=== PATIENT | female | born 1990 | race Caucasian/White ===

== ENCOUNTER 2017-02-02 14:57 | Emergency (ER) | payer BC ==
[~2017-02-02] VITALS: Ht 160 cm; Wt 78.0 kg
[~2017-02-02 14:57] MED LIST: ONDA4TAB14 PO
[2017-02-02 15:04] VITALS: Ht 160 cm; Wt 78.0 kg
[2017-02-02] MEDS ORDERED: SOD CHLORIDE 0.9% 1,000 ML IV STA (15:41)
[2017-02-02] MEDS ORDERED: ACET500C5 PO (15:51)
[2017-02-02] MEDS ORDERED: METO10TA92 PO (15:51)
--- NOTE | 2017-02-02 15:57 | ERD ---
ER Documentation Chief Complaint Date/Time DATE: 02/02/17 TIME: 15:52 Chief Complaint 9 WEEKS WITH LEFT GROIN PAIN HPI Patient is a 26-year-old female, approximately 9 weeks , , presents the ED for pelvic cramping and left groin pain. Patient states her symptoms started 3 days ago. Patient states the pain is sharp and episodic in nature. Patient states her current pain level is a 4 out of 10. Patient denies any vaginal bleeding. Patient denies any fevers, chills, nausea. Patient does report vomiting throughout her . Patient states she vomits 3-4 times per day. Patient has not seen her MOLECULAR PATHOLOGIST yet. Last menstrual period on 12-05-16. ROS All systems reviewed and are negative except as per history of present illness. Medications Home Meds Active Scripts Cephalexin* (Keflex*) 500 Mg Capsule, 500 MG PO TID for 7 Days, CAP Prov:RIAZ SPENCE PA-C 02/02/17 Metoclopramide* (Reglan*) 10 Mg Tablet, 10 MG PO Q6 Y for NAUSEA AND/OR VOMITING , #10 TAB Prov:RIAZ SPENEC PA-C 02/02/17 Acetaminophen* (Tylophen*) 500 Mg Capsule, 1 CAP PO Q6H Y for PAIN AND OR ELEVATED TEMP, #20 CAP Prov:RIAZ SPENCE PA-C 02/02/17 Ondansetron (Ondansetron Odt) 4 Mg Tab.rapdis, 4 MG PO Q6H Y for NAUSEA AND/OR VOMITING, #30 TAB Prov:CASIE MOISE MD 06/09/16 Allergies Allergies: Coded Allergies: No Known Allergy (Unverified , 02/02/17) PMhx/Soc History of Surgery: No Anesthesia Reaction: No Hx Respiratory Disorders: No Hx Psychiatric Problems: No Hx Miscellaneous Medical Probl: No Hx Alcohol Use: No Hx Substance Use: No Hx Tobacco Use: No FmHx Family History: No diabetes Physical Exam Vitals Vital Signs Date Time Temp Pulse Resp B/P Pulse Ox O2 Delivery O2 Flow Rate FiO2 02/02/17 15:04 98.1 77 18 109/60 99 Physical Exam GENERAL: Well-developed, well-nourished female. Appears in no acute distress. HEAD: Normocephalic, atraumatic. EYES: Pupils are equally reactive bilaterally. EOMs grossly intact. No conjunctival erythema. ENT: Moist mucous membranes. No uvula deviation. No kissing tonsils. NECK: Supple. No meningismus. Normal range of motion of the neck. LUNG: Clear to auscultation bilaterally. No rhonchi, wheezing, rales or coarse breath sounds. HEART: Regular rate and rhythm. No murmurs, rubs or gallops. ABDOMEN: Soft and nondistended. Minimally tender to palpation in the left lower quadrant. No bulges palpated. No rebound tenderness, no guarding. (-) McBurney's point tenderness. No CVA tenderness. BACK: No midline tenderness. EXTREMITIES: Equal pulses bilaterally. No peripheral clubbing, cyanosis or edema. No unilateral leg swelling. NEUROLOGIC: Alert and oriented. Moving all four extremities without any difficulty. Normal speech. Steady gait. SKIN: Normal color. Warm and dry. No rashes or lesions. Result Diagram: 02/02/17 1550 02/02/17 1550 Results 24 hrs Laboratory Tests Test 02/02/17 15:50 02/02/17 16:05 White Blood Count 9.610^3/ul Red Blood Count 3.8510^6/ul Hemoglobin 11.5g/dl Hematocrit 34.8% Mean Corpuscular Volume 90.4fl Mean Corpuscular Hemoglobin 29.9pg Mean Corpuscular Hemoglobin Concent 33.0g/dl Red Cell Distribution Width 12.1% Platelet Count 99053^3/UL Mean Platelet Volume 10.1fl Neutrophils % 68.8% Lymphocytes % 22.4% Monocytes % 6.3% Eosinophils % 1.7% Basophils % 0.4% Nucleated Red Blood Cells % 0.0/100WBC Neutrophils # 6.610^3/ul Lymphocytes # 2.210^3/ul Monocytes # 0.610^3/ul Eosinophils # 0.210^3/ul Basophils # 0.010^3/ul Nucleated Red Blood Cells # 0.010^3/ul Sodium Level 141mmol/L Potassium Level 3.9mmol/L Chloride Level 102mmol/L Carbon Dioxide Level 25mmol/L Anion Gap 18 Blood Urea Nitrogen 10mg/dl Creatinine 0.63mg/dl Glucose Level 76mg/dl Calcium Level 9.3mg/dl Total Bilirubin 0.0mg/dl Direct Bilirubin 0.00mg/dl Indirect Bilirubin 0.0mg/dl Aspartate Amino Transf (AST/SGOT) 27IU/L Alanine Aminotransferase (ALT/SGPT) 43IU/L Alkaline Phosphatase 60IU/L Total Protein 7.1g/dl Albumin 3.9g/dl Globulin 3.20g/dl Albumin/Globulin Ratio 1.21 Beta HCG, Quantitative 920445.0mIU/ml Urine Color YELLOW Urine Clarity SLIGHTLY CLOUDY Urine pH 8.0 Urine Specific [place] 1.014 Urine Ketones NEGATIVEmg/dL Urine Nitrite NEGATIVEmg/dL Urine Bilirubin NEGATIVEmg/dL Urine Urobilinogen NEGATIVEmg/dL Urine Leukocyte Esterase 3+Vikram/ul Urine Microscopic RBC 3/HPF Urine Microscopic WBC 4/HPF Urine Squamous Epithelial Cells FEW/HPF Urine Bacteria FEW/HPF Urine Hemoglobin NEGATIVEmg/dL Urine Glucose NEGATIVEmg/dL Urine Total Protein NEGATIVEmg/dl Current Medications Medications (Trade) Dose Ordered Sig/Mike Route PRN Reason Start Time Stop Time Status Last Admin Dose Admin Sodium Chloride (NS) 1,000 ml @ 1,000 mls/hr Q1H STAT IV 02/02/17 15:41 02/02/17 16:40 DC Metoclopramide HCl (Reglan) 10 mg ONCE ONCE IV 02/02/17 16:00 02/02/17 16:01 DC Procedures/MDM ED COURSE: The patient was stable throughout ED course. I kept the patient and/or family informed of laboratory and diagnostic imaging results throughout the ED course. DIAGNOSTIC IMAGING: Read by radiologist. Patient: JULIA WHIPPLE : 1990 Age: 26 Sex: F MR #: [id number] DOS: 02/02/17 1541 Ordering MD: RIAZ SPENCE PA-C Location: [facility] Room/Bed: PROCEDURE: OBSTETRICAL ULTRASOUND WITH ENDOVAGINAL IMAGES CLINICAL INDICATION: pelvic pain TECHNIQUE: Multiple sonographic images of the pelvis were obtained utilizing a transabdominal and endovaginal technique. The images were reviewed on a PACS workstation. COMPARISON: None. LMP: 12/05/2016 FINDINGS: There is a single live intrauterine with heart rate of 174 beats per minute, mean sac diameter of 3.58 cm, yolk sac, and crown-rump length of 2.05 cm which is consistent with a gestational age of 8 weeks, 6 days . The estimated date of delivery by ultrasound is 09/08/2017 . The estimated gestational age by LMP is 8 weeks, 3 days . The estimated date of delivery by LMP is 09/11/2017 . There is a 2.5 cm hypoechoic and hypovascular lesion adjacent to the gestational sac consistent with a subchorionic hemorrhage. The right ovary measures 3.1 x 1.5 x 2.0 cm. The left ovary measures a 5.2 x 3.2 x 3.4 cm. There is normal vascular flow in both ovaries. There is a 3 cm cystic lesion with low level internal echoes in the left ovary which may be a hemorrhagic/corpus luteal cyst. No significant pelvic free fluid is identified. IMPRESSION: Single live intrauterine consistent with a gestational age of 8 weeks , 6 days . The estimated date of delivery is 09/08/2017 . Dating by ultrasound is within 3 days of dating by LMP. 2.5 cm subchorionic hemorrhage. 3 cm complex cystic lesion in the left ovary may be a hemorrhagic/corpus luteal cyst. Attention on follow-up is recommended. RPTAT: EE Physician Valentine Date Time Electronically viewed and signed by Physician Valentine on 02/02/2017 16:14 RA/ CC: RIAZ SPENCE PA-C PROCEDURES: None. MEDICAL DECISION MAKING: This is a 26-year-old female presents to the ED for concerns of left- sided groin pain, pelvic cramping 3 days. Patient also does report vomiting daily. Patient denied any bleeding currently. Patient states her last menstrual period was on 12-05-16 believes that she is approximately 9 weeks . Patient has not seen an MOLECULAR PATHOLOGIST yet. Vital signs were reviewed. Patient was afebrile. Patient was offered IV fluids as well as Reglan however she declined. Quantitative b-HCG was 480934. CBC showed no evidence of systemic infection. Hgb noted to be 11.5, slight anemia noted. CMP showed no evidence of electrolyte abnormalities, severe acidosis, alkalosis, renal failure, or liver disease. UA showed no evidence of acute infection or hematuria. UA showed 3+ leukocyte esterase. Pelvic US showed Single live intrauterine consistent with a gestational age of 8 weeks, 6 days. 2.5 cm subchorionic hemorrhage. 3 cm complex cystic lesion in the left ovary may be a hemorrhagic/ corpus luteal cyst. Attention on follow-up is recommended. Given these findings , the patient's presentation is most consistent with left ovarian cyst, subchoronic hemorrhage and UTI. I have a much lower clinical concern for ectopic , ruptured ectopic , molar , spontaneous , incomplete , complete , missed , placental abruption, placental previa, vasa previa, uterine rupture, anembyronic , demise, pyelonephritis. PRESCRIPTIONS: Keflex, Reglan, Tylenol DISCHARGE: At this time, patient is stable for discharge and outpatient management. Patient provided with a copy of all imaging and blood work studies obtained today. Patient was advised to follow up with OB in regards to ovarian cyst, continue to monitor. I have instructed the patient to follow-up with her OBGYN in 1-2 days for further monitoring including a repeat b-HCG level. I have instructed the patient to promptly return to the ER at any time for any new or worsening symptoms including increased pain, nausea, vomiting, continued bleeding, weakness, syncope or fever. The patient and/or family expressed understanding of and agreement with this plan. All questions were answered. Home care instructions were provided. Departure Diagnosis: Primary Impression: Vomiting during Additional Impressions: Pelvic cramping Weeks of gestation: unspecified Qualified Code: Z33.1 - , unspecified gestational age UTI (urinary tract infection) Condition: Stable Patient Instructions: , Established, Normal Symptoms Referrals: [facility] YOU HAVE RECEIVED A MEDICAL SCREENING EXAM AND THE RESULTS INDICATE THAT YOU DO NOT HAVE A CONDITION THAT REQUIRES URGENT TREATMENT IN THE EMERGENCY DEPARTMENT. FURTHER EVALUATION AND TREATMENT OF YOUR CONDITION CAN WAIT UNTIL YOU ARE SEEN IN YOUR DOCTORS OFFICE WITHIN THE NEXT 1-2 DAYS. IT IS YOUR RESPONSIBILITY TO MAKE AN APPOINTMENT FOR FOLOW-UP CARE. IF YOU HAVE A PRIMARY DOCTOR --you should call your primary doctor and schedule an appointment IF YOU DO NOT HAVE A PRIMARY DOCTOR YOU CAN CALL OUR PHYSICIAN REFERRAL HOTLINE AT IF YOU CAN NOT AFFORD TO SEE A PHYSICIAN YOU CAN CHOSE FROM THE FOLLOWING [facility] CLINICS [facility] [address] [facility] [address] [facility] [address] [facility] [address] [facility] [address] [facility]. [facility]. [address] [facility]. [facility] YOU HAVE RECEIVED A MEDICAL SCREENING EXAM AND THE RESULTS INDICATE THAT YOU DO NOT HAVE A CONDITION THAT REQUIRES URGENT TREATMENT IN THE EMERGENCY DEPARTMENT. FURTHER EVALUATION AND TREATMENT OF YOUR CONDITION CAN WAIT UNTIL YOU ARE SEEN IN YOUR DOCTORS OFFICE WITHIN THE NEXT 1-2 DAYS. IT IS YOUR RESPONSIBILITY TO MAKE AN APPOINTMENT FOR FOLOW-UP CARE. IF YOU HAVE A PRIMARY DOCTOR --you should call your primary doctor and schedule and appointment IF YOU DO NOT HAVE A PRIMARY DOCTOR YOU CAN CALL OUR PHYSICIAN REFERRAL HOTLINE AT . IF YOU CAN NOT AFFORD TO SEE A PHYSICIAN YOU CAN CHOSE FROM THE FOLLOWING [facility] INSTITUTIONS: [facility] [address] [place] [address] [facility] [address] [place] [address] [facility] [address] [place] [address] MOLECULAR PATHOLOG[place] [address] [facility] [address] [place], [place] [phone] OFFICE FAX JOSEPH BARRY [address] [place], [place] [phone] [place] [address] [place], [place] [phone] TATIANNA PATIÑO [address] [facility], [address], [facility] [address] [address] [address] [place] [address] [facility] [address] [place] [address] [address] [facility] [id number] AR[address] [facility] [address] [address]ANNER, [place]HOAN [address] [facility]. [address], [facility] [phone] LEBRON, [facility] [address] [place] [address] Additional Instructions: Call your primary care doctor/OBGYN TOMORROW for an appointment during the next 1-2 days.See the doctor sooner or return here if your condition worsens before your appointment time. RIAZ SPENCE PA-C Feb 02, 2017 15:57
[2017-02-02 15:59] LABS: ADD SCAN DIFF NO
[2017-02-02] MEDS ORDERED: METOCLOPRAMIDE 10 MG INJ IV ONE (16:00)
[2017-02-02 16:02] LABS: BASOPHILS % 0.4 % (0.0-2.0); EOSINOPHILS # 0.2 10^3/ul (0.0-0.5); EOSINOPHILS % 1.7 % (0.0-7.0); HEMATOCRIT 34.8 % (37.0-47.0); HEMOGLOBIN 11.5 g/dl (12.0-16.0); LYMPHOCYTES # 2.2 10^3/ul (0.8-2.9); LYMPHOCYTES % 22.4 % (15.0-51.0); MEAN CORPUSCULAR HEMOGLOBIN 29.9 pg (29.0-33.0); MEAN CORPUSCULAR VOLUME 90.4 fl (82.0-101.0); MEAN PLATELET VOLUME 10.1 fl (7.4-10.4); MONOCYTE # 0.6 10^3/ul (0.3-0.9); MONOCYTES % 6.3 % (0.0-11.0); NEUTROPHIL # 6.6 10^3/ul (1.6-7.5); NEUTROPHILS % 68.8 % (39.0-77.0); PLATELET COUNT 277 10^3/UL (140-415); RED BLOOD COUNT 3.85 10^6/ul (4.20-5.40); RED CELL DISTRIBUTION WIDTH 12.1 % (11.5-14.5); WHITE BLOOD COUNT 9.6 10^3/ul (4.8-10.8)
--- NOTE | 2017-02-02 16:14 | RADRPT ---
PROCEDURE: OBSTETRICAL ULTRASOUND WITH ENDOVAGINAL IMAGES CLINICAL INDICATION: pelvic pain TECHNIQUE: Multiple sonographic images of the pelvis were obtained utilizing a transabdominal and endovaginal technique. The images were reviewed on a PACS workstation. COMPARISON: None. LMP: 12/05/2016 FINDINGS: There is a single live intrauterine with heart rate of 174 beats per minute, mean sa c diameter of 3.58 cm, yolk sac, and crown-rump length of 2.05 cm which is consistent with a gestati onal age of 8 weeks, 6 days . The estimated date of delivery by ultrasound is 09/08/2017 . The estimated gestational age by LMP is 8 weeks, 3 days . The estimated date of delivery by LMP is 09/11/2017 . There is a 2.5 cm hypoechoic and hypovascular lesion adjacent to the gestational sac consistent with a subchorionic hemorrhage. The right ovary measures 3.1 x 1.5 x 2.0 cm. The left ovary measures a 5.2 x 3.2 x 3.4 cm. There is normal vascular flow in both ovaries. There is a 3 cm cystic lesion with low level internal echoes in the left ovary which may be a hemorr hagic/corpus luteal cyst. No significant pelvic free fluid is identified. IMPRESSION: Single live intrauterine consistent with a gestational age of 8 weeks, 6 days . The estimated date of delivery is 09/08/2017 . Dating by ultrasound is within 3 days of dating by LMP. 2.5 cm subchorionic hemorrhage. 3 cm complex cystic lesion in the left ovary may be a hemorrhagic/corpus luteal cyst. Attention on follow-up is recommended. RPTAT: EE Physician Valentine Date Time Electronically viewed and signed by Physician Valentine on 02/02/2017 16:14 /
[2017-02-02 16:22] LABS: ADD UMIC YES; UR ASCORBIC ACID NEGATIVE (NEGATIVE); UR BACTERIA FEW /HPF (NONE SEEN); UR BILIRUBIN (Dip) NEGATIVE (NEGATIVE); UR BLOOD (Dip) NEGATIVE (NEGATIVE); UR CLARITY SLIGHTLY CLOUDY (CLEAR); UR COLOR YELLOW (YELLOW); UR GLUCOSE (Dip) NEGATIVE (NEGATIVE); UR KETONES (Dip) NEGATIVE (NEGATIVE); UR LEUKOCYTE ESTERASE (Dip) 3+ Leu/ul (NEGATIVE); UR NITRITE (Dip) NEGATIVE (NEGATIVE); UR RBC 3 /HPF (0-5); UR SPECIFIC GRAVITY (Dip) 1.014 (1.003-1.030); UR SQUAMOUS EPITHELIAL CELL FEW /HPF (FEW); UR TOTAL PROTEIN (Dip) NEGATIVE (NEGATIVE); UR UROBILINOGEN (Dip) NEGATIVE (NEGATIVE)
[2017-02-02 16:28] LABS: ALBUMIN 3.9 g/dl (3.3-4.9); ALBUMIN/GLOBULIN RATIO 1.21; CALCIUM 9.3 mg/dl (8.4-10.2); CREATININE 0.63 mg/dl (0.44-1.00); POTASSIUM 3.9 mmol/L (3.5-5.1); TOTAL PROTEIN 7.1 g/dl (6.1-8.1)
[2017-02-02] MEDS ORDERED: CEPH-443 PO (17:26)
[2017-02-02 17:52] VITALS: BP 115/56; PULSE 77; RESP 18; TEMP 98.1
== END 2017-02-02 17:53 | disposition home or self-care (01) ==
LOC: FTE 14:57
DX: O21.9 Vomiting of pregnancy, unspecified (principal); R10.2 Pelvic and perineal pain; O23.41 Unspecified infection of urinary tract in pregnancy, first trimester; Z3A.08 8 weeks gestation of pregnancy
CPT/HCPCS: 36415; 76801; 80053; 81001; 84702; 85025; 99284; J7030

== ENCOUNTER 2017-11-16 15:21 | Emergency (ER) | END 2017-11-16 17:18 | disposition left against medical advice (07) ==

== ENCOUNTER 2018-06-25 23:56 | Emergency (ER) | END 2018-06-26 01:27 | disposition home or self-care (01) ==